=== PATIENT | female | born 1955 ===

== ENCOUNTER → 2021-11-11 11:31 | Outpatient (BNVA) | payer OTHER, SELFPAY | PROVIDERS: Visit Provider Licensed Practical Nurse | DX: Z20.822 Contact with and (suspected) exposure to COVID-19 (principal); Z01.818 Encounter for other preprocedural examination | CPT/HCPCS: 87635 ==

== ENCOUNTER 2024-05-08 11:18 | Outpatient (CLI) | payer OTHER, SELFPAY ==
--- NOTE | 2024-05-08 11:45 | MM_ITS ---
WS: [id number] VIEWS: MLO, CC, and ML views both breasts. 3D digital tomosynthesis is also included in this exam. No comparisons available at this time Findings: There was no sign of mass, architectural distortion or suspicious calcification in either breast. Bio psy clips seen in the upper outer quadrant of the LEFT breast. There are scattered areas of fibrogla ndular density. Previous outside mammograms have been requisitioned for comparison. LEFT breast ultr asound may also be necessary pending mammographic comparison. Final report will follow. MM/[place] [id number] Impression: BI-RADS: 0-Incomplete: Need additional imaging evaluation FOLLOW-UP: See Report This mammogram was also analyzed by the Computer Aided Detection System R2 Imag e Sample Coordinator.
== END 2024-05-08 11:19 | disposition home or self-care (01) ==
LOC: RAD 11:20
PROVIDERS: PCP Physician Assistant; Visit Provider Physician Assistant
DX: Z12.31 Encounter for screening mammogram for malignant neoplasm of breast (principal); R92.323 Mammographic fibroglandular density, bilateral breasts
CPT/HCPCS: 77062; G0279